=== PATIENT | male | born 1995 | race Caucasian/White ===

== ENCOUNTER 2018-11-22 19:08 | Emergency (ER) | payer SELFPAY ==
[~2018-11-22] VITALS: Ht 185.4 cm; Wt 68.5 kg
[2018-11-22 19:13] VITALS: BP 126/74
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
--- NOTE | 2018-11-22 19:25 | NUR ---
ERMD BEING EVALUATED BY
[2018-11-22 19:42] VITALS: BP 126/74
--- NOTE | 2018-11-22 19:42 | NUR ---
Patient discharged with v/s stable. Written and verbal after care instructions given and explained. Patient verbalized understanding. Ambulatory with steady gait. All questions addressed prior to discharge. Advised to follow up with PMD.
== END 2018-11-22 19:42 | disposition home or self-care (01) ==
LOC: MED 19:08
DX: S01.01XA Laceration without foreign body of scalp, initial encounter (principal); V19.9XXA Pedal cyclist (driver) (passenger) injured in unspecified traffic accident, initial encounter; Y93.89 Activity, other specified; Y92.410 Unspecified street and highway as the place of occurrence of the external cause; Y99.8 Other external cause status
CPT/HCPCS: 99281